=== PATIENT | male | born 1940 | race Caucasian/White ===

== ENCOUNTER → 2017-01-09 | Outpatient (CLI) | payer OTHER, BC ==
[~2017-01-09] MED LIST: CENTRUM SILVER1 EAC5 PO; LOPERAMIDE2 MG PO; ONDANSETRON HCL4 M2 PO
== END ==
LOC: MRI 11:24
DX: G45.9 Transient cerebral ischemic attack, unspecified (principal); F03.90 Unspecified dementia, unspecified severity, without behavioral disturbance, psychotic disturbance, mood disturbance, and anxiety

== ENCOUNTER → 2021-09-06 | Outpatient (CLI) | payer OTHER, BC | LOC: ULTRA 08:18 | PROVIDERS: ATTEND Family Medicine | DX: R22.1 Localized swelling, mass and lump, neck (principal) ==

== ENCOUNTER → 2021-09-15 | Outpatient (CLI) | payer OTHER, BC | LOC: MRI 09-14 09:20 | PROVIDERS: ATTEND Family Medicine | DX: M50.222 Other cervical disc displacement at C5-C6 level (principal); M48.02 Spinal stenosis, cervical region; E04.1 Nontoxic single thyroid nodule; R22.1 Localized swelling, mass and lump, neck ==